=== PATIENT | female | born 1975 | race Caucasian/White ===

== ENCOUNTER 2018-03-06 05:56 | Inpatient (IN) ==
[2018-03-06] MEDS ORDERED: Chlorhexidine Gluconate 2% 1 Pack (2 Cloths) TOPICAL ONE (06:41)
[2018-03-06] MEDS ORDERED: Metoprolol Tartrate 25 MG Tablet PO ONE (06:41)
[2018-03-06] MEDS ORDERED: ceFAZolin 2 GM Premix Inj 2 GM/50 ML PIGGYBACK IV.SIG PRN (06:42)
[2018-03-06] MEDS ORDERED: Sodium Chlor 0.9% Inj 500 ML IV.SIG SCH (07:00)
[2018-03-06] MEDS ORDERED: Bupivacaine/Epinephrine Inj 0.25% 50 ML Vial ONE (09:41)
[2018-03-06] MEDS ORDERED: Lidocaine PF 1% Inj 5 ML Syringe OTHER ONE (09:55)
[2018-03-06] MEDS ORDERED: Neostigmine Inj 5 MG/5 ML Syringe IV.PUSH ONE (09:55)
[2018-03-06] MEDS ORDERED: Glycopyrrolate Inj 1 MG/5 ML Syringe IV.PUSH ONE (09:55)
[2018-03-06] MEDS ORDERED: diphenhydrAMINE HCl 12.5 MG/5 ML Elixir UDC PO PRN (11:12)
[2018-03-06] MEDS ORDERED: Post-op Orders (for Pharmacy) OTHER STA (11:12)
[2018-03-06] MEDS ORDERED: Naloxone Inj 0.4 MG/ML Vial IV.PUSH PRN (11:19)
[2018-03-06] MEDS ORDERED: *morphine SULFATE 4 MG/ML PERIprocedure ONLY ONE ×2 (11:40→11:47)
[2018-03-06] MEDS ORDERED: fentaNYL Citrate Inj 100 MCG/2 ML Ampul ONE (11:42)
[2018-03-06] MEDS ORDERED: *HYDROmorphone PF Inj 1 MG/ML Ampul PERIprocedural Use ONLY ONE (12:15)
[2018-03-06] MEDS ORDERED: Morphine Inj 30 MG/30 ML PCA.VIAL PCA ONE (12:33)
[2018-03-06] MEDS ORDERED: KCL 20 mEq/D5W/NaCl 0.45% Inj 1,000 ML ONE (12:33)
[2018-03-06] MEDS: KCL 20 mEq/D5W/NaCl 0.45% Inj 1,000 ML IV.CONT SCH ×2 (12:42→20:17)
--- NOTE | 2018-03-06 12:53 | MP ---
cc: Hiram Hagen MD DATE OF OPERATION: 03/06/2018 PREOPERATIVE DIAGNOSIS: Morbid obesity with a BMI of 48, complicated by essential hypertension and obstructive sleep apnea. POSTOPERATIVE DIAGNOSES: Morbid obesity with a BMI of 48, complicated by essential hypertension and obstructive sleep apnea. PROCEDURE PERFORMED: Laparoscopic vertical sleeve gastrectomy over a 36-Luxembourger ViSiGi bougie. SURGEON: Hiram Hagen MD ANESTHESIA: General endotracheal anesthesia. ESTIMATED BLOOD LOSS: Less than 10 mL FINDINGS: Fatty liver. SPECIMENS: None. COMPLICATIONS: None. PROCEDURE IN DETAIL: The patient was brought to the operating room and placed on the operating table in supine position, bilateral sequential inflation device placed on lower extremities. General anesthesia was instituted. Antibiotics was initiated. The abdomen was prepped and draped sterilely. A point 15 cm distal to the xiphoid in the midline was anesthetized with 0.25% Marcaine with epinephrine. A skin incision was made, 5-mm OptiView port placed under direct vision and pneumoperitoneum created. Under direct vision, three 5-mm left upper quadrant, a 15-mm right upper quadrant, 5-mm right upper quadrant ports placed. Prior to placement of all ports the skin and peritoneum were anesthetized with 0.25% Marcaine with epinephrine. The patient was placed in reverse Trendelenburg position left side up, the Sarah-Flex retractor was placed. The left lobe of the liver was retracted. The vasculature along the greater curvature of the stomach was using harmonic scalpel starting a distance 5-cm proximal to the pylorus and carried towards the angle of His. The angle of His was taken down bluntly. Posterior ligamentous attachments were sharply . A 36-Luxembourger ViSiGi bougie was placed at the start of the case, was placed on suction. Division of the stomach started 5 cm proximal to the pylorus and carried towards the angle of His to completely excise approximately 80% of the stomach. This was performed using an Sandoval Flex stapler at the pylorus. The first firing was with a black load, followed by a green load and four gold loads. All staple loads were reinforced with SeamGuard. A distance of 2 cm was left from the angle incisura and the staple line and a distance of 1 cm left from the GE junction and the staple line. The pylorus was then occluded, methylene blue tinged saline was instilled. There was no evidence of extravasation. The gastrocolic ligament was then sutured to the posterior leaflet of the SeamGuard using a 2-0 Vicryl suture in a running manner. Bleeding points were controlled with Evicel. The excised stomach was removed from the peritoneal cavity through the 15-mm port site in an Endopouch. The fascia at the 15-mm port site was approximated with 0 Vicryl suture. The CO2 was then released, all ports were removed, all skin incisions closed with 4-0 Monocryl. The abdominal wall was cleaned. A sterile dressing was placed. The patient was awakened and taken to the recovery room. MD MARTHA Blanco/brinda , 11:24 AM , 11:29 AM
[2018-03-06] MEDS: Morphine Inj 30 MG/30 ML PCA.VIAL PCA PRN (13:02)
[2018-03-06] MEDS: Enoxaparin Inj 40 MG/0.4 ML Syringe SQ SCH (16:40)
[2018-03-06] MEDS: ceFAZolin 1 GM Premix Inj 1 GM/50 ML FROZ.PIGGY IV.SIG SCH (17:14)
[2018-03-07] MEDS: ceFAZolin 1 GM Premix Inj 1 GM/50 ML FROZ.PIGGY IV.SIG SCH ×2 (03:06→09:02)
[2018-03-07] MEDS: KCL 20 mEq/D5W/NaCl 0.45% Inj 1,000 ML IV.CONT SCH ×2 (03:07→14:12)
[2018-03-07 06:10] LABS: Baso % (Auto) 0.4 % (0.0-2.0); Hematocrit 38.9 % (35.0-46.0); Hemoglobin 13.3 gm/dL (11.6-15.3); Lymph # (Auto) 1.2 th/mm3 (1.0-4.8); Lymph % (Auto) 9.7 % (9.0-44.0); Mean Corpuscular HGB Conc 34.3 % (32.0-36.0); Mean Corpuscular Hemoglobin 32.7 pg (27.0-34.0); Mean Corpuscular Volume 95.5 fL (80.0-100.0); Mean Platelet Volume 9.1 fL (7.0-11.0); Mono % (Auto) 7.7 % (0.0-8.0); Neut # (Auto) 10.4 th/mm3 (1.8-7.7); Neut % (Auto) 82.2 % (16.0-70.0); Platelet Count 267 th/mm3 (150-450); Red Blood Count 4.08 mil/mm3 (4.00-5.30); Red Cell Distribution Width 13.6 % (11.6-17.2); White Blood Count 12.6 th/mm3 (4.0-11.0)
[2018-03-07 06:41] LABS: Anion Gap 10 meq/L (5-15); Blood Urea Nitrogen 6 mg/dL (7-18); Calcium 8.4 mg/dL (8.5-10.1); Carbon Dioxide 24.5 meq/L (21.0-32.0); Chloride 106 meq/L (98-107); Glomerular Filtration Rate Greater Than 89 mL/min (>89); Glucose,Random 107 mg/dL (74-106); Magnesium 2.1 mg/dL (1.5-2.5); Potassium 4.1 meq/L (3.5-5.1); Sodium 140 meq/L (136-145)
[2018-03-07] MEDS: Acetaminophen-HYDROcodone 325/7.5 Liq 15 ML UDC PO PRN ×2 (14:07→20:31)
--- NOTE | 2018-03-07 14:44 | P.PNGS ---
Subjective Patient reports: no new complaints, tolerating liquids well, flatus, no bowel movement Physical Exam Vital signs: Vital Signs 03/06/18 15:00 03/06/18 15:51 03/06/18 16:00 Temperature 98.1 F Pulse Rate 85 87 Respiratory Rate 22 2 L 17 Blood Pressure 141/82 H 132/63 Pulse Oximetry 94 L 94 L 03/06/18 20:00 03/07/18 00:00 03/07/18 04:00 Temperature 98.3 F 98.2 F 98.6 F Pulse Rate 88 96 H 88 Respiratory Rate 18 18 Blood Pressure 150/75 H 136/78 134/71 Pulse Oximetry 91 L 92 L 93 L 03/07/18 08:00 03/07/18 09:45 03/07/18 12:00 Temperature 98.7 F 99.2 F Pulse Rate 76 79 Respiratory Rate 20 20 Blood Pressure 134/68 141/68 H Pulse Oximetry 94 L 98 98 Intake & Output 03/06/18 03/07/18 03/07/18 18:59 06:59 18:59 Intake Total 1969 / 1969 2250 / 2250 150 / 150 Output Total 20 / 20 1100 / 1100 Balance 1949 / 1949 1150 / 1150 150 / 150 Weight 131.6 kg 132.1 kg Intake: IV 1350 / 1350 2250 / 2250 150 / 150 D5W/1/2NS + KCL 20 mEq Inj 1, 2000 / 2000 000 ML @ 125 mls/hr IV.CONT . 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 Rx#:[id number] Oral 120 / 120 Anesthesia Amount 500 / 500 Output: Urine 1100 / 1100 Estimated Blood Loss 20 / 20 Other: # Voids 1 Weight On Admission 131.6 kg - Constitutional no acute distress - Routine Abdominal Exam Present: soft, tenderness Comments: incisional tenderness Results - Labs 03/07/18 04:33 03/07/18 04:33 Laboratory Results - last 24 hr 03/07/18 03/07/18 04:33 04:33 WBC 12.6 H RBC 4.08 Hgb 13.3 Hct 38.9 MCV 95.5 MCH 32.7 MCHC 34.3 RDW 13.6 Plt Count 267 MPV 9.1 Neut % (Auto) 82.2 H Lymph % (Auto) 9.7 [place] % (Auto) 7.7 Eos % (Auto) 0.0 Baso % (Auto) 0.4 Neut # (Auto) 10.4 H Lymph # (Auto) 1.2 [place] # (Auto) 1.0 H Eos # (Auto) 0.0 Baso # (Auto) 0.0 WBC Differential . Differential Comment Auto diff final Sodium 140 Potassium 4.1 Chloride 106 Carbon Dioxide 24.5 Anion Gap 10 BUN 6 L Creatinine 0.69 Estimated GFR Greater than 89 Random Glucose 107 H Calcium 8.4 L Magnesium 2.1 Assessment and Plan - Assessment (1) Gastric bypass status for obesity Code(s): Z98.84 - Bariatric surgery status Status: Acute Plan: Cont liquids decrease ivf ambulate restart home meds
[2018-03-07] MEDS: Enoxaparin Inj 40 MG/0.4 ML Syringe SQ SCH (18:04)
[2018-03-07] MEDS ORDERED: Scopalamine 1.5 MG Patch T-DERMAL SCH (18:15)
[2018-03-07] MEDS: Morphine Inj 30 MG/30 ML PCA.VIAL PCA PRN (20:41)
[2018-03-08] MEDS: Acetaminophen-HYDROcodone 325/7.5 Liq 15 ML UDC PO PRN ×3 (02:17→15:33)
[2018-03-08] MEDS: KCL 20 mEq/D5W/NaCl 0.45% Inj 1,000 ML IV.CONT SCH (06:13)
[2018-03-08 12:16] VITALS: RESP 17; O2SAT 96
[2018-03-08] MEDS: Enoxaparin Inj 40 MG/0.4 ML Syringe SQ SCH (15:33)
[2018-03-08 16:40] VITALS: BP 129/67; PULSE 79; TEMP 98.4
== END 2018-03-08 17:40 | disposition home or self-care (01) ==
LOC: HSDC 05:56 → EDSTATUS 10:30 → HSDI 11:12 → N07 15:42
PROVIDERS: ADMIT Surgery; ATTEND Surgery